=== PATIENT | male | born 1990 | race Caucasian/White ===

== ENCOUNTER 2022-07-23 06:25 | Emergency (ER) | payer SELFPAY ==
[~2022-07-23] VITALS: Ht 182.9 cm; Wt 102.0 kg
[2022-07-23] MEDS ORDERED: HYDROCODONE/ACETAMINOPHEN 5/325MG TABLET PO ONE (09:15)
[2022-07-23 09:16] VITALS: BP 119/79
[2022-07-23] MEDS ORDERED: IBUP-2029 MT (11:03)
[2022-07-23] MEDS ORDERED: HYDR-4001 MT (11:03)
== END 2022-07-23 11:59 | disposition home or self-care (01) ==
LOC: ER 06:29
DX: S42.491A Other displaced fracture of lower end of right humerus, initial encounter for closed fracture (principal); S50.11XA Contusion of right forearm, initial encounter; F17.210 Nicotine dependence, cigarettes, uncomplicated; W01.0XXA Fall on same level from slipping, tripping and stumbling without subsequent striking against object, initial encounter; Y93.9 Activity, unspecified; Y92.9 Unspecified place or not applicable
CPT/HCPCS: 29105; 73060; 73080; 73090; 99284